=== PATIENT | female | born 1955 | race African-American/Black ===

== ENCOUNTER 2017-03-04 11:41 | Day surgery (SDC) | payer MEDICARE, MEDICAID ==
[2017-03-04] VITALS (7 sets, daily range): BP systolic 106–131; BP diastolic 71–97; PULSE 61–83; TEMP 97.8–98.4
[~2017-03-04 11:41] MED LIST: ALEVE 220MG220 MG PO; ALPARAZOLAM0.5 MG PO; AMBIEN 10MG10 MG PO; AMBIEN 5MG TABLE5 MG PO; AMOXICILLIN875 MG PO; ARIMIDEX1 MG PO; ATENOLOL PO; BIDIL 37.5 MG-21 TAB PO; BUSPAR DIVIDOSE15 MG PO; CLARINEX5 MG PO; COMPAZINE 110 MG/TAB PO; DEXAMETHASONE PO; DOXYCYCLINE 10100 MG PO; FERROUS SULFAT325 M2 PO; FLONASE NASAL S16 GM NS; GLIPIZIDE XL10 MG PO; GLIPIZIDE XL2.5 MG PO; GLUCOTROL10 MG PO; HUMALOG100 U/ML SC; LANTUS100 U/ML SC; LASIX 20MG TABL20 MG PO; LIPITOR 40MG TA40 MG PO; LISINOPRIL-HYDR1 TA1 PO; LOPRESSOR 225 MG/TAB PO; LORTAB 7.5/5001 TAB PO; METFORMIN1000 MG PO; NAMENDA XR 28MG PO; NAMENDA5 MG PO; NASAL SPRAY 1515 ML NS; NATURAL E400 IU PO; NEURONTIN100 MG/CAP PO; NORVASC 5MG5 MG/TAB PO; PAXIL 20MG20 MG PO; PRAVACHOL 40MG40 MG PO; PRINIVIL40 MG PO; ST. JOSEPH81 M2 PO; TOPROL XL 50MG50 MG PO; VITAMIN E 400 U4001 PO; XANAX 0.5MG0.5 MG PO; ZOCOR 40MG40 MG PO; ZOFRAN8 MG PO; ZOLOFT PO; ZOLOFT20 MG/ML PO
[2017-03-04] MEDS ORDERED: PLAVIX 75MG TAB75 MG PO (12:28)
[2017-03-04] MEDS ORDERED: VITAMIN D 1001000 IU PO (12:29)
[2017-03-04] MEDS ORDERED: MAGNESIUM GLUC500 MG PO (12:34)
[2017-03-04] MEDS ORDERED: FLONASE NASAL S16 GM NS (12:35)
[2017-03-04 13:03] LABS: INR 1.1 (0.8-3.0); PROTHROMBIN TIME 12.2 SECONDS (9.7-12.8)
[2017-03-04 13:04] LABS: MEAN CELL VOLUME 86 fl (80.0-100.0); MEAN CORPUSCULAR HGB CONC 32 g/dl (33.0-37.0); MEAN PLATELET VOLUME 10.7 fl (7.4-10.4); PLATELET COUNT 209 K/mm3 (130-400); RED BLOOD COUNT 3.81 M/mm3 (4.10-5.30)
[2017-03-04 13:05] LABS: HEMATOCRIT 32.8 % (37.0-47.0); HEMOGLOBIN 10.5 g/dl (12.5-16.0); MEAN CORPUSCULAR HEMOGLOBIN 28 pg (27.0-31.0)
[2017-03-04 13:06] LABS: CALCIUM 9.4 mg/dL (8.4-10.2); CREATININE, serum 0.78 mg/dL (0.52-1.25); POTASSIUM 4.5 mmol/L (3.4-5.0)
[2017-03-05 01:02] VITALS: BP 133/77; PULSE 76; TEMP 98
[2017-03-05 03:19] VITALS: BP 128/74; PULSE 74; TEMP 98
[2017-03-05 05:26] VITALS: BP 134/97; PULSE 81; TEMP 97.5
[2017-03-05 07:28] VITALS: BP 120/81; PULSE 70; TEMP 98
[2017-03-05 11:52] VITALS: BP 120/78; PULSE 89; TEMP 98.6
[2017-03-05 15:24] VITALS: BP 139/87; PULSE 79; TEMP 97.9
== END 2017-03-05 17:43 | disposition home or self-care (01) ==
LOC: COL.CAR 11:41 → JCC 11:41 → COL.CAR 12:00 → MEDICAL 17:40 → COL.CAR 03-05 17:43
PROVIDERS: Internal Medicine Interventional Cardiology
DX: I50.22 Chronic systolic (congestive) heart failure (principal); I25.10 Atherosclerotic heart disease of native coronary artery without angina pectoris; E11.9 Type 2 diabetes mellitus without complications; I73.9 Peripheral vascular disease, unspecified; Z79.4 Long term (current) use of insulin; Z79.84 Long term (current) use of oral hypoglycemic drugs; Z85.3 Personal history of malignant neoplasm of breast; Z90.12 Acquired absence of left breast and nipple; Z87.891 Personal history of nicotine dependence
CPT/HCPCS: OP; C1721; C1892; C1894; C1895; C1898; J0690; J1815; J1940; J2250; J3010; J7030; J7050

== ENCOUNTER → 2017-03-24 | Outpatient (CLI) | payer MEDICARE, MEDICAID ==
[~2017-03-24] MED LIST changes: +MAGNESIUM GLUC500 MG PO; +PLAVIX 75MG TAB75 MG PO; +VITAMIN D 1001000 IU PO
[2017-03-24 12:49] LABS: HEMOGLOBIN 10.5 g/dl (12.5-16.0); MEAN CELL VOLUME 85 fl (80.0-100.0); MEAN CORPUSCULAR HEMOGLOBIN 28 pg (27.0-31.0); MEAN CORPUSCULAR HGB CONC 33 g/dl (33.0-37.0); MEAN PLATELET VOLUME 9.8 fl (7.4-10.4); PLATELET COUNT 173 K/mm3 (130-400); RED BLOOD COUNT 3.79 M/mm3 (4.10-5.30); REDCELL DISTRIBUTION WIDTH-CV 15.4 % (11.5-14.5); WHITE BLOOD COUNT 4.3 K/mm3 (4.8-10.8)
[2017-03-24 12:50] LABS: HEMATOCRIT 32.3 % (37.0-47.0)
[2017-03-24 13:06] LABS: CALCIUM 9.6 mg/dL (8.4-10.2); CREATININE, serum 0.86 mg/dL (0.52-1.25); POTASSIUM 4.1 mmol/L (3.4-5.0)
[2017-03-24 13:18] LABS: TROPONIN-I 0.018 ng/mL (0.000-0.034)
== END ==
LOC: COL.RAD 12:16 → COL.LAB 12:16
PROVIDERS: Internal Medicine Interventional Cardiology
DX: I51.7 Cardiomegaly (principal)

== ENCOUNTER 2018-02-14 14:00 | Outpatient (RCR) | payer MEDICARE, MEDICAID | END 2018-03-18 08:19 | disposition home or self-care (01) | LOC: WSC 14:00 | DX: R26.0 Ataxic gait (principal); R26.89 Other abnormalities of gait and mobility; R29.6 Repeated falls | CPT/HCPCS: G8978-GP; G8979-GP ==

== ENCOUNTER 2019-07-06 14:45 | Outpatient (RCR) | payer MEDICARE, MEDICAID | END 2019-07-30 08:36 | disposition home or self-care (01) | LOC: WSC 14:45 | DX: E11.42 Type 2 diabetes mellitus with diabetic polyneuropathy (principal); R26.0 Ataxic gait ==